=== PATIENT | male | born 1960 ===

== ENCOUNTER 2023-08-28 14:19 | Outpatient (CLI) | payer OTHER, SELFPAY ==
--- NOTE | ~2023-08-28 | MR_ITS ---
MRI of the right shoulder Technique: Axial proton-density fat-sat images, coronal proton density fat-sat and T2 fat-sat images, and sagittal T1-weighted and T2 fat-sat images were acquired. Clinical History: Pain Findings: There is ldop-rx-[id number] AC joint degenerative change. Minimal subacromial spur present. C oracoclavicular, coracoacromial, and coracohumeral ligament are intact. Supraspinatus and infraspinatus tendons are intact, without partial or full-thickness tear. There is minimal tendinosis distally. Subscapularis tendon is intact. Tendon of long head of the biceps is int act. There are probable degenerative attenuation of the posterior to posterior superior labrum. Remainder of the labrum appears intact. Inferior glenohumeral ligament is intact. No significant degenerative change or effusion of the gleno humeral joint. No fluid distention of the subacromial/subdeltoid bursa. No muscle atrophy or edema. Impression: Degenerative attenuation of the posterior to the posterior superior labrum. Reto-vy-tbiyzrga AC joint degenerative change. Reviewed, dictated and finalized at location . Impression: Degenerative attenuation of the posterior to the posterior superior labrum. Edro-[id number] AC joint degenerative change.
== END 2023-08-28 14:20 ==
PROVIDERS: PCP Physician Assistant; Visit Provider Physician Assistant
DX: M25.811 Other specified joint disorders, right shoulder (principal); M25.311 Other instability, right shoulder; M19.011 Primary osteoarthritis, right shoulder
CPT/HCPCS: 73221